=== PATIENT | female | born 1965 | race Caucasian/White ===

== ENCOUNTER 2016-12-27 17:37 | Inpatient (IN) | payer MEDICAID, OTHER ==
[~2016-12-27] VITALS: Ht 154.9 cm; Wt 86.9 kg
[2016-12-27 20:05] LABS: URINE BLOOD (Dip) POC 1+ (NEGATIVE)
[2016-12-27] MEDS ORDERED: SOD CHLORIDE 0.9% 2,000 ML IV STA (20:15)
[2016-12-27 20:32] LABS: BASOPHIL # 0.1 10^3/ul (0.0-0.1); BASOPHILS % 0.6 % (0.0-2.0); EOSINOPHILS # 0.2 10^3/ul (0.0-0.5); EOSINOPHILS % 1.8 % (0.0-7.0); HEMATOCRIT 44.4 % (37.0-47.0); LYMPHOCYTES # 3.5 10^3/ul (0.8-2.9); LYMPHOCYTES % 38.9 % (15.0-51.0); MEAN CORPUSCULAR HEMOGLOBIN 30.8 pg (29.0-33.0); MEAN CORPUSCULAR VOLUME 85.5 fl (82.0-101.0); MEAN PLATELET VOLUME 10.4 fl (7.4-10.4); MONOCYTE # 0.6 10^3/ul (0.3-0.9); NEUTROPHIL # 4.7 10^3/ul (1.6-7.5); NEUTROPHILS % 51.4 % (39.0-77.0); PLATELET COUNT 288 10^3/UL (140-415); RED BLOOD COUNT 5.19 10^6/ul (4.20-5.40); RED CELL DISTRIBUTION WIDTH 12.8 % (11.5-14.5); WHITE BLOOD COUNT 9.1 10^3/ul (4.8-10.8)
[2016-12-27 20:36] LABS: ADD UMIC YES; UR ASCORBIC ACID NEGATIVE (NEGATIVE); UR BILIRUBIN (Dip) NEGATIVE (NEGATIVE); UR BLOOD (Dip) 1+ mg/dL (NEGATIVE); UR CLARITY CLEAR (CLEAR); UR COLOR STRAW (YELLOW); UR GLUCOSE (Dip) 3+ mg/dL (NEGATIVE); UR KETONES (Dip) 2+ mg/dL (NEGATIVE); UR LEUKOCYTE ESTERASE (Dip) 1+ Leu/ul (NEGATIVE); UR NITRITE (Dip) NEGATIVE (NEGATIVE); UR RBC 5 /HPF (0-5); UR SPECIFIC GRAVITY (Dip) 1.032 (1.003-1.030); UR SQUAMOUS EPITHELIAL CELL FEW /HPF (FEW); UR TOTAL PROTEIN (Dip) NEGATIVE (NEGATIVE); UR UROBILINOGEN (Dip) NEGATIVE (NEGATIVE)
[2016-12-27 20:49] LABS: MODE ROOM AIR; MetHgb Venous 0.1 %; Sample Type Blood venous; Venous COHb 0.4 %; Venous Fraction OxyHgb 81.9 %
[2016-12-27 20:55] LABS: ALBUMIN 4.2 g/dl (3.3-4.9); ALBUMIN/GLOBULIN RATIO 1.2; BILIRUBIN,INDIRECT 0.3 mg/dl (0-1.1); BILIRUBIN,TOTAL 0.3 mg/dl (0.2-1.3); CALCIUM 9.8 mg/dl (8.4-10.2); CREATININE 0.64 mg/dl (0.44-1.00); MAGNESIUM 1.9 mg/dl (1.7-2.5); PHOSPHORUS 4.1 mg/dl (2.5-4.9); POTASSIUM 3.9 mmol/L (3.5-5.1); TOTAL PROTEIN 7.7 g/dl (6.1-8.1)
[2016-12-27] MEDS ORDERED: POTASSIUM CHLORIDE (SR) 20 MEQ TAB PO STA (21:09)
[2016-12-27] MEDS ORDERED: INSULIN HUMAN REGULAR 100 UNIT in SOD CHLORIDE 0.9% 99 ML IV STA (21:09)
--- NOTE | 2016-12-27 21:34 | ERA ---
ER Documentation Chief Complaint Date/Time DATE: 12/27/16 TIME: 20:15 Chief Complaint POLYDIPSIA, POLYURIA, WEAKNESS X1 MONTH. BG 521 IN TRIAGE. NEW ONSET. HPI 51y/o female with no significant PMH, ambulatory to the ED c/o one month h/o worsening polydipsia, polyuria and generalized weakness. Denies headache, visual changes, focal weakness or numbness. No chest pain, palpitations, shortness of breath or cough. No abdominal pain, N/V/D/C. No URI symptoms, odynophagia or dysphagia. No leg pain or swelling. No fevers or chills. ROS All systems reviewed and are negative except as per history of present illness. Medications Home Meds No Active Prescriptions or Reported Meds Allergies Allergies: Coded Allergies: No Known Allergy (Unverified , 12/27/16) PMhx/Soc Reviewed in chart, As per HPI. Medical and Surgical Hx: pt denies Medical Hx, pt denies Surgical Hx History of Surgery: No Hx Neurological Disorder: No Hx Respiratory Disorders: No Hx Cardiac Disorders: No Hx Psychiatric Problems: No Hx Miscellaneous Medical Probl: No Hx Alcohol Use: Yes (social) Hx Substance Use: No Hx Tobacco Use: No Smoking Status: Never smoker FmHx Family History: No coronary disease, No diabetes, No other Physical Exam Vitals Vital Signs Date Time Temp Pulse Resp B/P Pulse Ox O2 Delivery O2 Flow Rate FiO2 12/27/16 18:03 98.5 88 16 128/87 95 Physical Exam Const: Alert, moderated distress Head: Atraumatic Eyes: Normal Conjunctiva ENT: Normal External Ears, Nose and Mouth. Neck: Full range of motion. Nontender, No lymphadenopathy. Resp: Clear to auscultation bilaterally Cardio: Regular rate and rhythm, no murmurs Abd: Soft, obese, non tender, non distended. Normal bowel sounds Skin: No petechiae or rashes Back: No midline or flank tenderness Ext: No cyanosis, or edema Neur: Awake and alert Psych: Normal Mood and Affect Result Diagram: 12/27/16201912/28/16 1450 Results 24 hrs Laboratory Tests Test 12/27/16 18:10 12/27/16 20:00 12/27/16 20:12 12/27/16 20:15 Bedside Glucose 521mg/dL Urine Color STRAW Urine Clarity CLEAR Urine pH 5.0 Urine Specific [place] 1.032 Urine Ketones 2+mg/dL Urine Nitrite NEGATIVEmg/dL Urine Bilirubin NEGATIVEmg/dL Urine Urobilinogen NEGATIVEmg/dL Urine Leukocyte Esterase 1+Lucy/ul Urine Microscopic RBC 5/HPF Urine Microscopic WBC 13/HPF Urine Squamous Epithelial Cells FEW/HPF Urine Hemoglobin 1+mg/dL Urine Glucose 3+mg/dL Urine Total Protein NEGATIVEmg/dl Bedside Urine pH (LAB) 5.0 Bedside Urine Protein (LAB) Negative Bedside Urine Glucose (UA) 0.50% Bedside Urine Ketones (LAB) 3+ Bedside Urine Blood 1+ Bedside Urine Nitrite (LAB) Negative Bedside Urine Leukocyte Esterase (L Negative Blood Gas Specimen Source Blood venous Arterial Blood Date Drawn 12/27/2016 8:40:17 PM Arterial Blood Gas Puncture Site VENOUS LINE Brennon Test N/A Venous Blood pH 7.294 Venous Blood pCO2 (Temp Corrected) 37.6mmHG Venous Blood pO2 (Temp Corrected) 46.7mmHG Venous Blood HCO3 17.8mmol/L Venous Blood Oxygen Saturation 82.3mmHG Venous Blood Base Excess -7.9mmol/L Venous Blood Total Hemoglobin 16.0g/dl Venous Blood Oxyhemoglobin 81.9% Venous Blood Methemoglobin 0.1% Carboxyhemoglobin 0.4% Blood Gas Temperature 37.0C Blood Gas Modality ROOM AIR FiO2 21.0% Blood Gas Notified Whom AA Blood Gas Notified Time 12/27/2016 8:48:36 PM Test 12/27/16 20:16 12/27/16 20:20 Bedside Glucose 483mg/dL White Blood Count 9.110^3/ul Red Blood Count 5.1910^6/ul Hemoglobin 16.0g/dl Hematocrit 44.4% Mean Corpuscular Volume 85.5fl Mean Corpuscular Hemoglobin 30.8pg Mean Corpuscular Hemoglobin Concent 36.0g/dl Red Cell Distribution Width 12.8% Platelet Count 51564^3/UL Mean Platelet Volume 10.4fl Neutrophils % 51.4% Lymphocytes % 38.9% Monocytes % 7.0% Eosinophils % 1.8% Basophils % 0.6% Nucleated Red Blood Cells % 0.0/100WBC Neutrophils # 4.710^3/ul Lymphocytes # 3.510^3/ul Monocytes # 0.610^3/ul Eosinophils # 0.210^3/ul Basophils # 0.110^3/ul Nucleated Red Blood Cells # 0.010^3/ul Sodium Level 132mmol/L Potassium Level 3.9mmol/L Chloride Level 101mmol/L Carbon Dioxide Level 18mmol/L Anion Gap 17 Blood Urea Nitrogen 11mg/dl Creatinine 0.64mg/dl Glucose Level 557mg/dl Hemoglobin A1c % Calcium Level 9.8mg/dl Phosphorus Level 4.1mg/dl Magnesium Level 1.9mg/dl Total Bilirubin 0.3mg/dl Direct Bilirubin 0.00mg/dl Indirect Bilirubin 0.3mg/dl Aspartate Amino Transf (AST/SGOT) 16IU/L Alanine Aminotransferase (ALT/SGPT) 28IU/L Alkaline Phosphatase 156IU/L Total Protein 7.7g/dl Albumin 4.2g/dl Globulin 3.50g/dl Albumin/Globulin Ratio 1.20 Current Medications Medications (Trade) Dose Ordered Sig/Alona Route PRN Reason Start Time Stop Time Status Last Admin Dose Admin Sodium Chloride 2,000 ml @ 1,000 mls/hr Q2H STAT IV 12/27/16 20:15 12/27/16 22:14 DC 12/27/16 20:22 Insulin Human Regular/Sodium Chloride (Novolin-R/NS) 100 ml @ 0 mls/hr TITRATE STAT IV 12/27/16 21:09 12/27/16 21:11 DC Potassium Chloride 40 meq 40 meq ONCE STAT PO 12/27/16 21:09 12/27/16 21:11 DC 12/27/16 21:28 Potassium Chloride/Sodium Chloride (KCl/NS) 1,010 ml @ 150 mls/hr Q6H44M IV 12/27/16 21:38 12/27/16 22:02 DC Procedures/MDM DOCUMENTS REVIEWED: ED nurse, no prior records MEDICAL DECISION MAKINy/o female with no significant PMH, ambulatory to the ED c/o one month h/o worsening polydipsia, polyuria and generalized weakness. New onset diabetes mellitus with severe hyperglycemia and anion gap metabolic acidosis consistent with diabetic ketoacidosis. No evidence of an occult infectious process. Iv hydration with 2L of NS followed by Insulin drip. Admit to ICU. Counseled patient regarding diagnosis, diagnostic results and plan for admission. PROCEDURES: CRITICAL CARE TIME: Due to the high probability of sudden clinically significant respiratory, hemodynamic, cardiovascular and endocrinologic deterioration, this patient with DKA required multiple, frequent reevaluations of vital signs, blood glucose and response to therapy. Additional critical care time was spent in interpretation of relevant clinical data and arranging for ongoing care and admission with Dr. Hood. TOTAL CRITICAL CARE TIME: 35 minutes not including other separately reportable procedures. CALLS/CONSULTS: Time 21:20, Dr. Hood. PATIENT CARE TRANSITIONED: Time: 21:32, Dr. Hood. Departure Diagnosis: Primary Impression: Weakness Additional Impressions: DKA (diabetic ketoacidoses) Qualified Code: E13.10 - Diabetic ketoacidosis without coma associated with type 2 diabetes mellitus New onset type 2 diabetes mellitus Condition: Critical GRETCHEN VELA MD Dec 27, 2016 21:34
[2016-12-27] MEDS ORDERED: POTASSIUM CHLORIDE 20 MEQ in SOD CHLORIDE 0.9% 1,000 ML IV SCH (21:38)
[2016-12-27] MEDS: ACCU-CHEK XX SCH ×2 (21:59→23:30)
[2016-12-27] MEDS ORDERED: INSULIN HUMAN REGULAR 100 UNIT in SOD CHLORIDE 0.9% 99 ML IV SCH (22:00)
[2016-12-27] MEDS ORDERED: DEXTROSE 50% 50 ML SYRINGE IV PRN ×2 (22:00)
[2016-12-27] MEDS ORDERED: ACETAMINOPHEN 650MG/20.3ML CUP PO PRN (22:00)
[2016-12-27] MEDS ORDERED: morphine 2 MG INJ IV PRN (22:00)
[2016-12-27] MEDS ORDERED: ONDANSETRON 4 MG INJ IV PRN (22:00)
[2016-12-27] MEDS ORDERED: POTASSIUM CHLORIDE 50 ML IVPB PRN (22:00)
[2016-12-27 23:18] LABS: CALCIUM 8.2 mg/dl (8.4-10.2); CREATININE 0.59 mg/dl (0.44-1.00); POTASSIUM 3.4 mmol/L (3.5-5.1)
[2016-12-28] MEDS ORDERED: SOD CHLORIDE 0.9% 1,000 ML IV SCH
[2016-12-28] MEDS: ACCU-CHEK XX SCH ×9 (00:19→08:37)
[2016-12-28] MEDS: NS + KCL 20 MEQ 1,000 ML IV SCH ×4 (01:00→20:42)
[2016-12-28] MEDS ORDERED: D5W + KCL 20 MEQ 1,000 ML IV SCH (01:00)
[2016-12-28] MEDS ORDERED: D5W-0.45 NACL + KCL 20 MEQ 1,000 ML IV ONE (01:30)
[2016-12-28] MEDS ORDERED: POTASSIUM CHLORIDE 250 ML IVPB ONE (01:30)
--- NOTE | 2016-12-28 03:08 | HP ---
Date/Time of Note Date/Time of Note DATE: 12/28/16 TIME: 03:01 Assessment/Plan VTE Prophylaxis VTE Prophylaxis Intervention: SCD's Assessment/Plan Chief Complaint/Hosp Course This is a 51-year-old female being admitted to the ICU floor for: #1 diabetic ketoacidosis: Patient is likely new onset diabetes. At the current time will start the patient on DKA protocol. Insulin drip. Will initiate IV fluid hydration aggressively and then switch to D5 and half normal saline once blood sugars are below 200. Will check BMPs as per the protocol and monitor electrolytes and replete as indicated. Check a hemoglobin A1c. Diabetes education consult. Endocrine consultation. #2 new onset diabetes: Check hemoglobin A1c. Initiate oral hypoglycemics and insulin if indicated. Endocrinology consult. Will check a urine microalbumin and start ANDREI inhibitor if indicated. Monitor patient's blood pressures with goal of less than 140/90. #3 DVT and GI prophylaxis: SCDs, Protonix Further treatment strategy will be implemented as per the clinical course Greater than 35 minutes of critical care time was spent on the care and plan of this patient. Problems: HPI/ROS Admit Date/Time Admit Date/Time Hx of Present Illness Chief complaint: Thirsty, weakness 1 month This is a 51-year-old female who comes in today to the ED complaining of being thirsty and dizzy 1 month. Patient reports weight loss as well. Patient reports polydipsia and polyuria as well as fatigue. He denies any recent sicknesses or illnesses. Denies any fevers. Does report a family history of diabetes in her father. Upon presentation to the ED patient presented with blood sugars above 500. Allergies: NKDA Medications: None ROS Const: As per HPI Eyes : No pain discharge or redness or change in visual acuity ENT: No pain, sore throat, congestion, congestion, dysphagia or discharge Respiratory: No shortness of breath, cough, sputum, wheezing, or pleuritic pain Cardiovascular: No chest pain, palpitation, PND, or edema GI : no change in appetite, abdominal pain, nausea, vomiting, diarrhea, constipation, or change in the color his stool Genitourinary: As per HPI Musculoskeletal: No joint pain, back pain, neck pain, restricted range of motion in neck or joints Skin: No rash, bruising or hives Neuro: No headache, dizziness, syncope, seizure, focal weakness Endocrine: As per HPI Psych: No hallucination, depression, anxiety or suicidal ideation PMH/Family/Social Past Medical History Medical History: no pertinent history Past Surgical History Past Surgical Hx: no surgical history Family History Significant Family History: heart disease, diabetes Social History Alcohol Use: occasionally Smoking Status: Never smoker Drug Use: none Exam/Review of Systems Vital Signs Vitals Vital Signs Date Time Temp Pulse Resp B/P Pulse Ox O2 Delivery O2 Flow Rate FiO2 12/27/16 22:30 66 12 129/83 98 Room Air 12/27/16 18:03 98.5 Exam Exam General: Patient is a obese female lying in bed in no acute distress HEENT: Atraumatic, normocephalic. The pupils are equal, round and reactive. Extraocular motor are intact Neck: Supple with full range of motion. No rigidity or meningismus Chest: Nontender Lungs: Clear to auscultation bilaterally no crackles rales or wheezing Heart: Normal S1-S2, Regular rhythm and rate. No overt murmurs appreciated Abdomen: Soft , nontender, nondistended , bowel sounds are present. No guarding no rebound tenderness , No masses or organomegaly. No costovertebral temporal angle mass Extremities: Normal to inspection, no edema no cyanosis Neurologic: Normal mental status, speech normal, cranial nerves II through XII are intact, motor and sensory are intact, no focal weakness Labs Result Diagram: 12/27/16201912/27/16 2249 Medications Medications Current Medications Ondansetron HCl (Zofran Inj) 4 mg Q6H PRN IV NAUSEA AND/OR VOMITING; Start at 22:00 Acetaminophen (Tylenol Liquid) 650 mg Q6H PRN PO PAIN LEVEL 1-3 OR FEVER; Start 12/27/16 at 22:00 Morphine Sulfate (morphine) 2 mg Q4H PRN IV PAIN LEVEL 7-10; Start 12/27/16 at 22:00 Pantoprazole (Protonix Iv) 40 mg DAILY@06 IV ; Start 12/28/16 at 06:00 Dextrose (D50w Syringe) 50 ml Q15M PRN IV For BS 50 or less; Start 12/27/16 at 22:00 Dextrose (D50w Syringe) 25 ml Q15M PRN IV BS between 50-70; Start 12/27/16 at 22:00 Diagnostic Test (Pha) (Accu-Chek) 1 ea Q1H XX Last administered on 12/28/16 02 :03; Admin Dose 1 EA; Start 12/27/16 at 22:00 Insulin Glargine 5 unit 5 unit QHS SC ; Start 12/28/16 at 21:00 Potassium Chloride/Sodium Chloride 1,000 ml @ 150 mls/hr Q6H40M IV ; Start at 01:00 Potassium Chloride/Dextrose/ Sod Cl 1,000 ml @ 100 mls/hr Q10H ONCE IV Last administered on 12/28/16 02:03; Admin Dose 100 MLS/HR; Start 12/28/16 at 01:30 ; Stop 12/28/16 at 11:29 Potassium Chloride (KCl 40 MEQ/250 ML NS) 250 ml @ 62.5 mls/hr ONCE ONCE IVPB Last administered on 12/28/16 02:14; Admin Dose 62.5 MLS/HR; Start 12/28/16 at 01:30; Stop 12/28/16 at 05:29 DES CHI Dec 28, 2016 03:08
[2016-12-28 03:23] LABS: CALCIUM 8.3 mg/dl (8.4-10.2); CREATININE 0.51 mg/dl (0.44-1.00); POTASSIUM 3.9 mmol/L (3.5-5.1)
[2016-12-28] MEDS ORDERED: PANTOPRAZOLE 40 MG INJ IV SCH (06:00)
[2016-12-28 07:23] LABS: CALCIUM 8.3 mg/dl (8.4-10.2); CREATININE 0.45 mg/dl (0.44-1.00)
[2016-12-28] MEDS ORDERED: INSULIN GLARGINE [LANtus] 3 ML PEN SC ONE (09:30)
[2016-12-28] MEDS ORDERED: NACL 0.9% 3 ML SYG IV SCH (09:30)
[2016-12-28] MEDS ORDERED: DEXTROSE 50% 50 ML SYRINGE IV PRN ×2 (10:00)
[2016-12-28] MEDS ORDERED: GLUCOSE GEL 15 GRAM TUBE PO PRN ×2 (10:00)
[2016-12-28] MEDS ORDERED: GLUCAGON 1 MG INJ IM PRN (10:00)
[2016-12-28] MEDS ORDERED: GLUCOSE GEL 15 GRAM TUBE BUCCAL PRN (10:00)
[2016-12-28 11:08] VITALS: BP 138/84; PULSE 74; RESP 18
[2016-12-28 11:15] VITALS: Ht 154.9 cm; Wt 86.9 kg
[2016-12-28] MEDS ORDERED: INSULIN ASPART [NOVOLOG] 3 ML PEN SC SCH (12:00)
[2016-12-28 13:33] VITALS: BP 120/79; RESP 18
[2016-12-28 15:22] LABS: CALCIUM 8.6 mg/dl (8.4-10.2); CHOL/HDL RATIO 6.6 RATIO; CREATININE 0.48 mg/dl (0.44-1.00); POTASSIUM 4.1 mmol/L (3.5-5.1)
[2016-12-28] MEDS: INSULIN ASPART [NOVOLOG] 3 ML PEN SC SCH ×3 (17:32→20:47)
[2016-12-28 19:53] VITALS: BP 117/78; RESP 18
[2016-12-28] MEDS ORDERED: INSULIN GLARGINE [LANtus] 3 ML PEN SC SCH (21:00)
[2016-12-29 02:00] VITALS: BP 117/73; RESP 20
[2016-12-29] MEDS: ACCU-CHEK XX SCH ×2 (02:00→02:21)
[2016-12-29 03:07] LABS: CALCIUM 8.6 mg/dl (8.4-10.2); CREATININE 0.49 mg/dl (0.44-1.00); POTASSIUM 3.4 mmol/L (3.5-5.1)
[2016-12-29] MEDS: NS + KCL 20 MEQ 1,000 ML IV SCH ×2 (03:28→03:32)
[2016-12-29 08:00] VITALS: BP 135/80; PULSE 70; RESP 18
[2016-12-29] MEDS ORDERED: INSULIN GLARGINE [LANtus] 3 ML PEN SC SCH (08:00)
[2016-12-29] MEDS: INSULIN ASPART [NOVOLOG] 3 ML PEN SC SCH ×7 (08:13→21:05)
[2016-12-29] MEDS ORDERED: FAMOTIDINE 20 MG INJ IV SCH (09:00)
[2016-12-29] MEDS ORDERED: POTASSIUM CHLORIDE (SR) 20 MEQ TAB PO STA (09:27)
--- NOTE | 2016-12-29 13:59 | PN ---
Date/Time of Note Date/Time of Note DATE: 12/29/16 TIME: 13:55 Assessment/Plan VTE Prophylaxis VTE Prophylaxis Intervention: LMWH Lines/Catheters IV Catheter Type (from Nrs): Peripheral IV Urinary Cath still in place: No Assessment/Plan Chief Complaint/Hosp Course 51 yo female with h/o obesity who presented with DKA, now resolved. New diagnosis of DM DM: - Suspect this is type II DM given adult onset, body habitus, and degree of insulin resistance, though await KELSIE, islet Ab results - Continue titration of insulin, and add on metformin - Await A1C - Appreciate assitance of DM educator - Lipids quite reasonable, no proteinuria so will hold off on statin or ANDREI at this time, BP is controlled - Dietary education DKA: - Resolved now GRACE: - Now resolved Hypokalemia: - Replete as needed Discharge likely tomorrow if appropriate follow up plan in place for clinic visit and ability to obtain insulin Problems: Subjective 24 Hr Interval Summary Free Text/Dictation DKA is now resolved Patient feels well Discussed DM diagnosis at length Unclear insurance status limiting discharge planning Exam/Review of Systems Vital Signs Vitals Vital Signs Date Time Temp Pulse Resp B/P Pulse Ox O2 Delivery O2 Flow Rate FiO2 12/29/16 02:00 97.5 67 20 117/73 99 12/28/16 11:08 Room Air Intake and Output 12/28/16 12/28/16 12/29/16 15:00 23:00 07:00 Intake Total 1360 ml 1300 ml Balance 1360 ml 1300 ml Exam Constitutional: alert, oriented, well developed Psych: nl mood/affect, no complaints Head: atraumatic, normocephalic Eyes: EOMI, PERRL, nl conjunctiva, nl lids, nl sclera ENMT: nl external ears & nose, nl lips & teeth, nl nasal mucosa & septum Neck: non-tender, supple Respiratory: clear to auscultation, normal air movement Cardiovascular: nl pulses, regular rate and rhythm Gastrointestinal: nl liver, spleen, non-tender, soft Musculoskeletal: nl extremities to inspection, nl gait and stance Extremities: normal pulses 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, nl mental status, nl speech, nl strength Skin: nl turgor, No rash or lesions Lymph: nl lymph nodes Results Result Diagram: 12/27/16201912/29/163 Results 24 hrs Laboratory Tests Test 12/28/16 14:50 12/28/16 17:24 12/28/16 20:40 12/29/16 02:13 Sodium Level 136 139 Potassium Level 4.1 3.4 L Chloride Level 106 109 Carbon Dioxide Level 21 22 Anion Gap 13 11 Blood Urea Nitrogen 6 L 6 L Creatinine 0.48 0.49 Glucose Level 285 H 191 Hemoglobin A1c Calcium Level 8.6 8.6 Triglycerides Level 143 Cholesterol Level 180 LDL Cholesterol, Calculated 124 HDL Cholesterol 27 L Cholesterol/HDL Ratio 6.6 Bedside Glucose 196 246 H 193 Test 12/29/16 07:56 12/29/16 11:55 Bedside Glucose 210 247 H Medications Medications Current Medications Ondansetron HCl (Zofran Inj) 4 mg Q6H PRN IV NAUSEA AND/OR VOMITING; Start at 22:00 Acetaminophen (Tylenol Liquid) 650 mg Q6H PRN PO PAIN LEVEL 1-3 OR FEVER; Start 12/27/16 at 22:00 Morphine Sulfate (morphine) 2 mg Q4H PRN IV PAIN LEVEL 7-10; Start 12/27/16 at 22:00 Diagnostic Test (Pha) (Accu-Chek) 1 ea 02 XX ; Start 12/29/16 at 02:00 Miscellaneous Information 1 ea NOTE XX ; Start 12/28/16 at 10:00 Glucose (Glutose) 15 gm Q15M PRN PO DECREASED GLUCOSE; Start 12/28/16 at 10:00 Glucose (Glutose) 22.5 gm Q15M PRN PO DECREASED GLUCOSE; Start 12/28/16 at 10: 00 Dextrose (D50w Syringe) 25 ml Q15M PRN IV DECREASED GLUCOSE; Start 12/28/16 at 10:00 Dextrose (D50w Syringe) 50 ml Q15M PRN IV DECREASED GLUCOSE; Start 12/28/16 at 10:00 Glucagon (Glucagen) 1 mg Q15M PRN IM DECREASED GLUCOSE; Start 12/28/16 at 10:00 Glucose (Glutose) 15 gm Q15M PRN BUCCAL DECREASED GLUCOSE; Start 12/28/16 at 10 :00 Diagnostic Test (Pha) (Accu-Chek) 1 ea 02 XX Last administered on 12/29/16t 02: 21; Admin Dose 1 EA; Start 12/29/16 at 02:00 Insulin Glargine (Lantus) 17 unit DAILY@08 SC Last administered on 12/29/16t 08 :12; Admin Dose 17 UNIT; Start 12/29/16 at 08:00 KENNETH KRAFT MD Dec 29, 2016 13:59
[2016-12-29 15:22] LABS: CREATININE, RANDOM URINE 23 mg/dL (20-320); MICROALBUMIN <0.2 mg/dL; MICROALBUMIN/CREATININE RATIO NOTE (<30)
[2016-12-29] MEDS: metFORMIN 850 MG TAB GTB SCH (17:18)
[2016-12-29 20:20] VITALS: BP 136/81; RESP 18
[2016-12-30 01:37] LABS: CALCIUM 9.5 mg/dl (8.4-10.2); CREATININE 0.65 mg/dl (0.44-1.00); POTASSIUM 3.6 mmol/L (3.5-5.1)
[2016-12-30] MEDS: ACCU-CHEK XX SCH ×2 (02:00→02:46)
[2016-12-30 02:53] VITALS: BP 122/71; RESP 16
[2016-12-30] MEDS ORDERED: INSULIN GLARGINE [LANtus] 3 ML PEN SC SCH (08:00)
[2016-12-30 08:02] VITALS: BP 109/68; RESP 16
[2016-12-30] MEDS: INSULIN ASPART [NOVOLOG] 3 ML PEN SC SCH ×6 (08:26→21:16)
[2016-12-30] MEDS: metFORMIN 850 MG TAB GTB SCH ×2 (08:27→17:24)
[2016-12-30] MEDS ORDERED: INSULIN ASPART [NOVOLOG] 3 ML PEN SC SCH (12:15)
[2016-12-30 14:00] VITALS: BP 101/72; RESP 18
--- NOTE | 2016-12-30 16:42 | PN ---
Date/Time of Note Date/Time of Note DATE: 12/30/16 TIME: 16:41 Assessment/Plan VTE Prophylaxis VTE Prophylaxis Intervention: LMWH Lines/Catheters [facility] Saline Lock Urinary Cath still in place: No Assessment/Plan Chief Complaint/Hosp Course 51 yo female with h/o obesity who presented with DKA, now resolved. New diagnosis of DM DM: - Suspect this is type II DM given adult onset, body habitus, and degree of insulin resistance, though await KELSIE, islet Ab results - Continue titration of insulin, and add on metformin - Await A1C - Appreciate assitance of DM educator - Lipids quite reasonable, no proteinuria so will hold off on statin or ANDREI at this time, BP is controlled - Dietary education DKA: - Resolved now GRACE: - Now resolved Hypokalemia: - Replete as needed Discharge when isnurance issues clarified and follow up plan in place for clinic visit and ability to obtain insulin Problems: Subjective 24 Hr Interval Summary Free Text/Dictation Still marked hyperglycemia Feels well, no complaints Exam/Review of Systems Vital Signs Vitals Vital Signs Date Time Temp Pulse Resp B/P Pulse Ox O2 Delivery O2 Flow Rate FiO2 12/30/16 14:00 97.8 91 18 101/72 93 12/29/16 08:00 Room Air Intake and Output 12/29/16 12/29/16 12/30/16 15:00 23:00 07:00 Intake Total 700 ml 800 ml 960 ml Balance 700 ml 800 ml 960 ml Exam Constitutional: alert, oriented, well developed Psych: nl mood/affect, no complaints Head: atraumatic, normocephalic Eyes: EOMI, PERRL, nl conjunctiva, nl lids, nl sclera ENMT: nl external ears & nose, nl lips & teeth, nl nasal mucosa & septum Neck: non-tender, supple Respiratory: clear to auscultation, normal air movement Cardiovascular: nl pulses, regular rate and rhythm Gastrointestinal: nl liver, spleen, non-tender, soft Musculoskeletal: nl extremities to inspection, nl gait and stance Extremities: normal pulses Neurological: 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 II-XII intact, nl mental status, nl speech, nl strength Skin: nl turgor, No rash or lesions Lymph: nl lymph nodes Results Result Diagram: 12/27/16201912/30/16 003 Results 24 hrs Laboratory Tests Test 12/29/16:06 12/29/16 21:02 12/30/16 00:37 12/30/16 02:45 Bedside Glucose 278 H 264 H 238 H Sodium Level 136 Potassium Level 3.6 Chloride Level 100 Carbon Dioxide Level 30 Anion Gap 10 Blood Urea Nitrogen 10 Creatinine 0.65 Glucose Level 234 H Calcium Level 9.5 Test 12/30/16 08:05 12/30/16 12:05 Bedside Glucose 264 H 298 H Medications Medications Current Medications Ondansetron HCl (Zofran Inj) 4 mg Q6H PRN IV NAUSEA AND/OR VOMITING; Start at 22:00 Acetaminophen (Tylenol Liquid) 650 mg Q6H PRN PO PAIN LEVEL 1-3 OR FEVER; Start 12/27/16 at 22:00 Morphine Sulfate (morphine) 2 mg Q4H PRN IV PAIN LEVEL 7-10; Start 12/27/16 at 22:00 Diagnostic Test (Pha) (Accu-Chek) 1 ea 02 XX ; Start 12/29/16 at 02:00 Miscellaneous Information 1 ea NOTE XX ; Start 12/28/16 at 10:00 Glucose (Glutose) 15 gm Q15M PRN PO DECREASED GLUCOSE; Start 12/28/16 at 10:00 Glucose (Glutose) 22.5 gm Q15M PRN PO DECREASED GLUCOSE; Start 12/28/16 at 10: 00 Dextrose (D50w Syringe) 25 ml Q15M PRN IV DECREASED GLUCOSE; Start 12/28/16 at 10:00 Dextrose (D50w Syringe) 50 ml Q15M PRN IV DECREASED GLUCOSE; Start 12/28/16 at 10:00 Glucagon (Glucagen) 1 mg Q15M PRN IM DECREASED GLUCOSE; Start 12/28/16 at 10:00 Glucose (Glutose) 15 gm Q15M PRN BUCCAL DECREASED GLUCOSE; Start 12/28/16 at 10 :00 Diagnostic Test (Pha) (Accu-Chek) 1 ea 02 XX Last administered on 12/30/16 02: 46; Admin Dose 1 EA; Start 12/29/16 at 02:00 Insulin Glargine (Lantus) 25 unit DAILY@08 SC Last administered on 12/30/16 08 :26; Admin Dose 25 UNIT; Start 12/30/16 at 08:00 KENNETH KRAFT MD Dec 30, 2016 16:42
[2016-12-30 20:11] VITALS: BP 106/64; RESP 18
[2016-12-31 01:54] VITALS: BP 101/71; RESP 18
[2016-12-31] MEDS: ACCU-CHEK XX SCH ×2 (02:00)
[2016-12-31 02:53] LABS: CALCIUM 9.3 mg/dl (8.4-10.2); CREATININE 0.63 mg/dl (0.44-1.00); POTASSIUM 3.4 mmol/L (3.5-5.1)
[2016-12-31 04:36] LABS: ISLET CELL ANTIBODY SCREEN NEGATIVE (NEGATIVE)
[2016-12-31 08:22] VITALS: BP 102/58; RESP 18
[2016-12-31] MEDS: metFORMIN 850 MG TAB GTB SCH ×2 (08:34→17:35)
[2016-12-31] MEDS: INSULIN ASPART [NOVOLOG] 3 ML PEN SC SCH ×7 (08:48→21:00)
[2016-12-31] MEDS: INSULIN GLARGINE [LANtus] 3 ML PEN SC SCH (08:49)
--- NOTE | 2016-12-31 14:47 | PN ---
Date/Time of Note Date/Time of Note DATE: 12/31/16 TIME: 14:45 Assessment/Plan VTE Prophylaxis VTE Prophylaxis Intervention: LMWH Lines/Catheters IV [facility] Saline Lock Urinary Cath still in place: No Assessment/Plan Chief Complaint/Hosp Course 51 yo female with h/o obesity who presented with DKA, now resolved. New diagnosis of DM DM: - Almost certainly type II DM given adult onset, body habitus, and degree of insulin resistance, await KELSIE, islet Ab results - Continue titration of insulin. Now at 30 lantus, 8 Novolog QAC, and on metformin - Await A1C, > 14% given sendout - Appreciate assitance of DM educator - Lipids quite reasonable and no proteinuria so will hold off on statin or ANDREI at this time, BP is controlled - Dietary education DKA: - Resolved now GRACE: - Now resolved Hypokalemia: - Replete as needed Discharge when isnurance issues clarified and follow up plan in place for clinic visit and ability to obtain insulin Problems: Subjective 24 Hr Interval Summary Free Text/Dictation Doing well no complaitns Educated on insulin injections Unable to be discharged as insurance not finalized and no ability to obtain insulin yet Exam/Review of Systems Vital Signs Vitals Vital Signs Date Time Temp Pulse Resp B/P Pulse Ox O2 Delivery O2 Flow Rate FiO2 12/31/16 08:22 99.0 69 18 102/58 95 12/29/16 08:00 Room Air Intake and Output 12/30/16 12/30/16 12/31/16 15:00 23:00 07:00 Intake Total 1660 ml 400 ml Output Total 1100 ml Balance 560 ml 400 ml Exam Constitutional: alert, oriented, well developed Psych: nl mood/affect, no complaints Head: atraumatic, normocephalic Eyes: EOMI, PERRL, nl conjunctiva, nl lids, nl sclera ENMT: nl external ears & nose, nl lips & teeth, nl nasal mucosa & septum Neck: non-tender, supple Respiratory: clear to auscultation, normal air movement Cardiovascular: nl pulses, regular rate and rhythm Gastrointestinal: nl liver, spleen, non-tender, soft Musculoskeletal: nl extremities to inspection, nl gait and stance Extremities: normal pulses Neurological: 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-XII 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, nl mental status, nl speech, nl strength Skin: nl turgor, No rash or lesions Lymph: nl lymph nodes Results Result Diagram: 12/27/16201912/31/16 0200 Results 24 hrs Laboratory Tests Test 12/30/16 17:16 12/30/16 21:09 12/31/16 02:00 12/31/16 02:13 Bedside Glucose 223 H 187 193 Sodium Level 136 Potassium Level 3.4 L Chloride Level 101 Carbon Dioxide Level 29 Anion Gap 9 Blood Urea Nitrogen 11 Creatinine 0.63 Glucose Level 193 Calcium Level 9.3 Test 12/31/16 08:13 12/31/16 12:20 Bedside Glucose 249 H 201 Medications Medications Current Medications Ondansetron HCl (Zofran Inj) 4 mg Q6H PRN IV NAUSEA AND/OR VOMITING; Start at 22:00 Acetaminophen (Tylenol Liquid) 650 mg Q6H PRN PO PAIN LEVEL 1-3 OR FEVER; Start 12/27/16 at 22:00 Morphine Sulfate (morphine) 2 mg Q4H PRN IV PAIN LEVEL 7-10; Start 12/27/16 at 22:00 Diagnostic Test (Pha) (Accu-Chek) 1 ea 02 XX ; Start 12/29/16 at 02:00 Miscellaneous Information 1 ea NOTE XX ; Start 12/28/16 at 10:00 Glucose (Glutose) 15 gm Q15M PRN PO DECREASED GLUCOSE; Start 12/28/16 at 10:00 Glucose (Glutose) 22.5 gm Q15M PRN PO DECREASED GLUCOSE; Start 12/28/16 at 10: 00 Dextrose (D50w Syringe) 25 ml Q15M PRN IV DECREASED GLUCOSE; Start 12/28/16 at 10:00 Dextrose (D50w Syringe) 50 ml Q15M PRN IV DECREASED GLUCOSE; Start 12/28/16 at 10:00 Glucagon (Glucagen) 1 mg Q15M PRN IM DECREASED GLUCOSE; Start 12/28/16 at 10:00 Glucose (Glutose) 15 gm Q15M PRN BUCCAL DECREASED GLUCOSE; Start 12/28/16 at 10 :00 Diagnostic Test (Pha) (Accu-Chek) 1 ea 02 XX Last administered on 12/30/16 02: 46; Admin Dose 1 EA; Start 12/29/16 at 02:00 Insulin Glargine (Lantus) 30 unit DAILY@08 SC Last administered on 12/31/16 08 :49; Admin Dose 30 UNIT; Start 12/31/16 at 08:00 KENNETH KRAFT MD Dec 31, 2016 14:47
[2016-12-31 15:17] VITALS: BP 98/63; RESP 18
[2016-12-31 20:00] VITALS: BP 116/78; PULSE 82; RESP 16
[2017-01-01] MEDS: ACCU-CHEK XX SCH ×2 (02:00)
[2017-01-01 02:37] LABS: CALCIUM 9.2 mg/dl (8.4-10.2); CREATININE 0.66 mg/dl (0.44-1.00); POTASSIUM 3.3 mmol/L (3.5-5.1)
[2017-01-01 07:51] VITALS: BP 110/71; RESP 18
[2017-01-01] MEDS: INSULIN ASPART [NOVOLOG] 3 ML PEN SC SCH ×7 (08:06→20:36)
[2017-01-01] MEDS: INSULIN GLARGINE [LANtus] 3 ML PEN SC SCH (08:07)
[2017-01-01] MEDS: metFORMIN 850 MG TAB GTB SCH ×2 (08:18→17:50)
[2017-01-01 14:46] VITALS: BP 110/69; RESP 18
--- NOTE | 2017-01-01 16:00 | PN ---
Date/Time of Note Date/Time of Note DATE: 01/01/17 TIME: 15:56 Assessment/Plan VTE Prophylaxis VTE Prophylaxis Intervention: LMWH Lines/Catheters IV Catheter Type (from Nrs): Saline Lock Urinary Cath still in place: No Assessment/Plan Chief Complaint/Hosp Course 51 yo female with h/o obesity who presented with DKA, now resolved. New diagnosis of DMII - The patient is stable for discharge. However limited by no insurance currently. Medicaid application has been submitted though unclear status w financial office. On Monday, if financial office arranges insurance she can be prescribed insulin as outpatient that way. If not, she should be discharged and instructed to go immediately to [facility] when clinics are open Monday DMII with marked hyperglycemia: - Serologies confirm Type II DM - Surgars reasonably controlled on glargine 35 and novolog 8 QAC - A1C > 14% - Appreciate assitance of DM educator - Lipids quite reasonable and no proteinuria so will hold off on statin or ANDREI at this time, BP is controlled DKA: - Resolved now GRACE: - Now resolved Hypokalemia: - Replete as needed Discharge when isnurance issues clarified and follow up plan in place for clinic visit and ability to obtain insulin Problems: Subjective 24 Hr Interval Summary Free Text/Dictation Patient stable, no complaints Exam/Review of Systems Vital Signs Vitals Vital Signs Date Time Temp Pulse Resp B/P Pulse Ox O2 Delivery O2 Flow Rate FiO2 01/01/17 14:46 97.6 79 18 110/69 94 12/31/16 20:00 Room Air Exam Constitutional: alert, oriented, well developed Psych: nl mood/affect, no complaints Head: atraumatic, normocephalic Eyes: EOMI, PERRL, nl conjunctiva, nl lids, nl sclera ENMT: nl external ears & nose, nl lips & teeth, nl nasal mucosa & septum Neck: non-tender, supple Respiratory: clear to auscultation, normal air movement Cardiovascular: nl pulses, regular rate and rhythm Gastrointestinal: nl liver, spleen, non-tender, soft Musculoskeletal: nl extremities to inspection, nl gait and stance Extremities: normal pulses Neurological: STOCK [employer]ORPERSON II-XII intact, nl mental status, nl speech, nl strength Skin: nl turgor, No rash or lesions Lymph: nl lymph nodes Results Result Diagram: 01/01/17 0206 Results 24 hrs Laboratory Tests Test 12/31/16 17:29 12/31/16 20:27 01/01/17 02:06 01/01/17 08:02 Bedside Glucose 160 160 173 Sodium Level 139 Potassium Level 3.3 L Chloride Level 103 Carbon Dioxide Level 28 Anion Gap 11 Blood Urea Nitrogen 12 Creatinine 0.66 Glucose Level 185 Calcium Level 9.2 Test 01/01/17 11:48 01/01/17 11:52 01/01/17 11:55 01/01/17 12:09 Lab Scanned Report REFERENCE LAB REFERENCE LAB REFERENCE LAB Bedside Glucose 155 Medications Medications Current Medications Ondansetron HCl (Zofran Inj) 4 mg Q6H PRN IV NAUSEA AND/OR VOMITING; Start at 22:00 Acetaminophen (Tylenol Liquid) 650 mg Q6H PRN PO PAIN LEVEL 1-3 OR FEVER; Start 12/27/16 at 22:00 Morphine Sulfate (morphine) 2 mg Q4H PRN IV PAIN LEVEL 7-10; Start 12/27/16 at 22:00 Diagnostic Test (Pha) (Accu-Chek) 1 ea 02 XX ; Start 12/29/16 at 02:00 Miscellaneous Information 1 ea NOTE XX ; Start 12/28/16 at 10:00 Glucose (Glutose) 15 gm Q15M PRN PO DECREASED GLUCOSE; Start 12/28/16 at 10:00 Glucose (Glutose) 22.5 gm Q15M PRN PO DECREASED GLUCOSE; Start 12/28/16 at 10: 00 Dextrose (D50w Syringe) 25 ml Q15M PRN IV DECREASED GLUCOSE; Start 12/28/16 at 10:00 Dextrose (D50w Syringe) 50 ml Q15M PRN IV DECREASED GLUCOSE; Start 12/28/16 at 10:00 Glucagon (Glucagen) 1 mg Q15M PRN IM DECREASED GLUCOSE; Start 12/28/16 at 10:00 Glucose (Glutose) 15 gm Q15M PRN BUCCAL DECREASED GLUCOSE; Start 12/28/16 at 10 :00 Diagnostic Test (Pha) (Accu-Chek) 1 ea 02 XX Last administered on 12/30/16 02: 46; Admin Dose 1 EA; Start 12/29/16 at 02:00 Insulin Glargine (Lantus) 30 unit DAILY@08 SC Last administered on 01/01/17 08 :07; Admin Dose 30 UNIT; Start 12/31/16 at 08:00 KENNETH KRAFT MD Jan 01, 2017 16:00
[2017-01-01 19:22] VITALS: BP 107/74; RESP 20
--- NOTE | 2017-01-02 00:39 | CONS ---
Date/Time of Note Date/Time of Note DATE: 01/01/17 (late entry) Thank you for asking me to participate in this patients care. Assessment/Plan Assessment/Plan Problems: (1) Diabetes mellitus, type 2 Status: Chronic Comment: Newly diagnosed. Antibody profile is negative and patient is a Type 2 diabetic. Her current insulin requirements are high, and it will be determined later if she can transition off insulin onto oral agents. Qualifiers: (2) Diabetic ketoacidosis Status: Resolved Qualifiers: Qualified Code: E13.10 - Diabetic ketoacidosis without coma associated with other specified diabetes mellitus Additional Assessment/Plan Patient can follow up in my office with me on January at 11: 30 am. Consultation Date/Type/Reason Admit Date/Time Date of Consultation: Jan 01, 2017 Type of Consultation: Endocrine Reason for Consultation Diabetes Management Referring Provider: KENNETH KRAFT MD Hx of Present Illness 51 year old woman without prior medical history presented to [facility] with worsening thirst, increased urination and sense of weakness. She was found to be in mild diabetes ketoacidosis. She was admitted to the hospital treated with IV insulin with resolve of the DKA. She is a newly diagnosed diabetic, and I have been asked to assist in this patients transition from hospital management to outpatient management of her diabetes. Constitutional: other (malaise and weakness) Eyes: no complaints ENT: no complaints Respiratory: no complaints Cardiovascular: no complaints Gastrointestinal: no complaints Genitourinary: no complaints Musculoskeletal: no complaints Skin: no complaints Neurologic: no complaints Endocrine: polydypsia, polyuria Lymphatic: no complaints Psychological: nl mood/affect, no complaints Past Medical History Medical History: no pertinent history Past Surgical History Past Surgical Hx: no surgical history Family History Significant Family History: other (none known) Social History Alcohol Use: occasionally Smoking Status: Never smoker Drug Use: none Exam/Review of Systems Vital Signs Vitals Vital Signs Date Time Temp Pulse Resp B/P Pulse Ox O2 Delivery O2 Flow Rate FiO2 01/01/17 19:22 98.0 81 20 107/74 91 12/31/16 20:00 Room Air Exam Patient visiting with family Constitutional: alert, oriented, well developed Head: normocephalic Eyes: EOMI, PERRL, fundi, disc (undilated fundi not seen), nl conjunctiva Neck: supple Respiratory: clear to auscultation Cardiovascular: regular rate and rhythm Gastrointestinal: soft Musculoskeletal: nl extremities to inspection Extremities: normal pulses Neurological: nl mental status, nl speech, nl strength Skin: nl turgor Results POC glucose reviewed Result Diagram: 01/01/17 0206 Results 24 hrs Laboratory Tests Test 01/01/17 02:06 01/01/17 08:02 01/01/17 11:48 01/01/17 11:52 Sodium Level 139 Potassium Level 3.3 L Chloride Level 103 Carbon Dioxide Level 28 Anion Gap 11 Blood Urea Nitrogen 12 Creatinine 0.66 Glucose Level 185 Calcium Level 9.2 Bedside Glucose 173 Lab Scanned Report REFERENCE LAB REFERENCE LAB Test 01/01/17 11:55 01/01/17 12:09 01/01/17 17:33 01/01/17 20:36 Lab Scanned Report REFERENCE LAB Bedside Glucose 155 142 96 Medications Medications Current Medications Ondansetron HCl (Zofran Inj) 4 mg Q6H PRN IV NAUSEA AND/OR VOMITING; Start at 22:00 Acetaminophen (Tylenol Liquid) 650 mg Q6H PRN PO PAIN LEVEL 1-3 OR FEVER; Start 12/27/16 at 22:00 Morphine Sulfate (morphine) 2 mg Q4H PRN IV PAIN LEVEL 7-10; Start 12/27/16 at 22:00 Diagnostic Test (Pha) (Accu-Chek) 1 ea 02 XX ; Start 12/29/16 at 02:00 Miscellaneous Information 1 ea NOTE XX ; Start 12/28/16 at 10:00 Glucose (Glutose) 15 gm Q15M PRN PO DECREASED GLUCOSE; Start 12/28/16 at 10:00 Glucose (Glutose) 22.5 gm Q15M PRN PO DECREASED GLUCOSE; Start 12/28/16 at 10: 00 Dextrose (D50w Syringe) 25 ml Q15M PRN IV DECREASED GLUCOSE; Start 12/28/16 at 10:00 Dextrose (D50w Syringe) 50 ml Q15M PRN IV DECREASED GLUCOSE; Start 12/28/16 at 10:00 Glucagon (Glucagen) 1 mg Q15M PRN IM DECREASED GLUCOSE; Start 12/28/16 at 10:00 Glucose (Glutose) 15 gm Q15M PRN BUCCAL DECREASED GLUCOSE; Start 12/28/16 at 10 :00 Diagnostic Test (Pha) (Accu-Chek) 1 ea 02 XX Last administered on 12/30/16t 02: 46; Admin Dose 1 EA; Start 12/29/16 at 02:00 Insulin Glargine (Lantus) 35 unit DAILY@08 SC ; Start 01/02/17 at 08:00 MALLY GARCIA MD Jan 02, 2017 00:22
[2017-01-02] MEDS: ACCU-CHEK XX SCH ×2 (02:00)
[2017-01-02 02:20] VITALS: BP 105/65; RESP 20
[2017-01-02 06:30] LABS: CREATININE 0.77 mg/dl (0.44-1.00); POTASSIUM 3.5 mmol/L (3.5-5.1)
[2017-01-02 07:58] VITALS: BP 100/63; RESP 18
[2017-01-02] MEDS ORDERED: INSULIN GLARGINE [LANtus] 3 ML PEN SC SCH (08:00)
[2017-01-02] MEDS: INSULIN ASPART [NOVOLOG] 3 ML PEN SC SCH ×4 (08:01→12:15)
[2017-01-02] MEDS: metFORMIN 850 MG TAB GTB SCH (08:10)
[2017-01-02] MEDS ORDERED: METF-480 PO (11:43)
[2017-01-02] MEDS ORDERED: NOVO3I SC (11:43)
[2017-01-02] MEDS ORDERED: LANT3I SC (11:43)
--- NOTE | 2017-01-02 11:45 | PDOCDIS ---
Discharge Instructions CONDITION Patient Condition: Good HOME CARE INSTRUCTIONS: Special Diet: DIABETIC DIET ACTIVITY: Activity Restrictions: No Restrictions FOLLOW UP/APPOINTMENTS Follow-up Plan F/U WITH A PCP IN 1-2 WEEKS JASPAL ANN Jan 02, 2017 11:45
--- NOTE | 2017-01-02 15:36 | DS ---
Date/Time of Note Date/Time of Note DATE: 01/02/17 TIME: 15:28 Discharge Summary Admission/Discharge Info Admit Date/Time Dec 27, 2016 at 21:44 Discharge Date/Time Jan 02, 2017 at 14:35 Discharge Diagnosis 1. DMII with marked hyperglycemia: - Serologies confirm Type II DM - Surgars reasonably controlled on glargine 35 and novolog 8 QAC - A1C > 14% - Appreciate assitance of DM educator - Lipids quite reasonable and no proteinuria so will hold off on statin or ANDREI at this time, BP is controlled 2. DKA: - Resolved 3. GRACE-resolved Patient Condition: Good Hospital Course Patient is a 51 year old woman without prior medical history presented with worsening thirst, increased urination and sense of weakness. She was found to be in mild diabetes ketoacidosis. She was treated with IV insulin with resolve of the DKA. She is a newly diagnosed diabetic, patient was seen by endocrinology , lab work showed the patient had type 2 diabetes, patient's sugars were ultimately controlled with subcu insulin and metformin. Her A1c was undetectable hence greater than 14. Patient was seen by life skills educator patient did understand how to self administer insulin. On the day of discharge patient's vitals, labs and physical exam are stable showed no acute complaints and questions were answered. Of note patient did receive [facility]i-[facility] during this hospitalization, patient was also told that she can follow-up with Chandrika Solo if needed. Home Meds Active Scripts Metformin* (Glucophage*) 850 Mg Tablet, 850 MG PO WITH BREAKFAST DINNE, #60 TAB 1 Refill Prov:JASPAL ANN 01/02/17 Insulin Glargine* (Lantus*) 100 Unit/Ml Soln, 35 UNIT SC DAILY@08, #1 VIAL 1 Refill Prov:JASPAL ANN 01/02/17 Insulin Aspart* (Novolog Insulin Pen*) 100 Unit/Ml Soln, 8 UNIT SC WITH MEALS, # 1 VIAL 1 Refill Prov:JASPAL ANN 01/02/17 Follow-up Plan F/U WITH A PCP IN 1-2 WEEKS, patient to also follow-up with endocrinology with Dr. Flores, an appointment was given to her Primary Care Provider Care Physician No Primary Time spent on discharge: > 30 minutes JASPAL ANN Jan 02, 2017 15:36
== END 2017-01-02 14:35 | disposition home or self-care (01) | DRG 638 ==
LOC: E/R 17:37 → MS2 21:44
PROVIDERS: ADMIT Family Medicine; ATTEND Family Medicine
DX: E13.10 Other specified diabetes mellitus with ketoacidosis without coma (principal); N17.9 Acute kidney failure, unspecified; E87.6 Hypokalemia; E11.65 Type 2 diabetes mellitus with hyperglycemia
CPT/HCPCS: 36415; 80048; 80053; 80061; 81001; 81003; 82043; 82803; 82962; 83036; 83735; 84100; 85025; 86337; 86341; 96361; 96372; 96374; 96375; J1815; J3480; J7030

== ENCOUNTER → 2017-01-17 | Outpatient (CLI) | payer MEDICAID ==
[~2017-01-17] MED LIST: LANT3I SC; METF-480 PO; NOVO3I SC
== END | disposition home or self-care (01) ==
LOC: DIB 10:44
PROVIDERS: ATTEND Emergency Medicine
DX: Z02.9 Encounter for administrative examinations, unspecified (principal)